=== PATIENT | male | born 1975 | race Caucasian/White ===

== ENCOUNTER → 2017-10-09 06:52 | Outpatient (CLI) | payer OTHER, SELFPAY ==
[2017-10-09 09:19] LABS: Add Manual Diff / Slide Review NO; Basophils Percent Auto 0.9 % (0-2); Eosinophils Percent Auto 11.2 % (2-4); Hematocrit 42.2 % (41-53); Hemoglobin 14.6 g/dL (13.5-17.5); Lymphocytes Percent Auto 32.7 % (25-40); Mean Corpuscular HGB Conc 34.6 % (30-36); Mean Corpuscular Hemoglobin 30.3 PG (26-34); Mean Corpuscular Volume 87.7 fL (80-100); Monocytes Percent Auto 9.7 % (3-14); Neutrophils Absolute Auto 2600 /uL (3000-5900); Neutrophils Percent Auto 45.5 % (50-75); Platelet Count 277 X10^3/uL (150-400); Red Blood Cell Count 4.81 X10^6/uL (4.5-5.9); Red Cell Distribution Width 13.1 % (11.6-14.8); White Blood Cell Count 5.7 X10^3/uL (4.5-11.0)
[2017-10-09 09:58] LABS: Alanine Aminotransferase 38 IU/L (21-72); Albumin 3.9 g/dL (3.5-5.0); Albumin Globulin Ratio 1.4 (1.0-2.8); Alkaline Phosphatase 64 U/L (38-126); Aspartate Aminotransferase 21 IU/L (17-59); BUN Creatinine Ratio 21.1 (6-22); Bilirubin Total 0.6 mg/dL (0.2-1.3); Blood Urea Nitrogen 19 mg/dL (9-20); Calcium 9.5 mg/dL (8.4-10.2); Carbon Dioxide 29 mmol/L (22-32); Chloride 106 mmol/L (98-107); Cholesterol 172 mg/dL (140-199); Estimated Glomerular Filt Rate > 60.0 mL/min (>60); Globulin 2.8 g/dL (1.7-4.1); Glucose 82 mg/dL (70-100); HDL Cholesterol 52 mg/dL (40-60); HEMOLYSIS < 15 (0-50); LDL Cholesterol Calculated 108 mg/dL (<100); Potassium 4.4 mmol/L (3.4-5.1); Sodium 144 mmol/L (137-145); Total Protein 6.7 g/dL (6.3-8.2); Triglycerides 59 mg/dL (35-150)
== END ==
PROVIDERS: PCP Family Medicine; Visit Provider Family Medicine
DX: E78.00 Pure hypercholesterolemia, unspecified (principal)
CPT/HCPCS: 36415; 80053; 80061; 85025

== ENCOUNTER → 2019-02-21 06:40 | Outpatient (CLI) | payer OTHER, SELFPAY ==
[2019-02-21 08:12] LABS: Alanine Aminotransferase 40 IU/L (<50); Albumin 4.2 g/dL (3.5-5.0); Albumin Globulin Ratio 1.4 (1.0-2.8); Alkaline Phosphatase 65 U/L (38-126); Aspartate Aminotransferase 28 IU/L (17-59); BUN Creatinine Ratio 16.3 (6-22); Bilirubin Total 0.6 mg/dL (0.2-1.3); Blood Urea Nitrogen 13 mg/dL (9-20); Calcium 9.7 mg/dL (8.4-10.2); Carbon Dioxide 30 mmol/L (22-32); Chloride 107 mmol/L (98-107); Cholesterol 161 mg/dL (140-199); Estimated Glomerular Filt Rate > 60.0 mL/min (>60); Glucose 97 mg/dL (70-100); HDL Cholesterol 51 mg/dL (40-60); HEMOLYSIS < 15 (0-50); LDL Cholesterol Calculated 99 mg/dL (<100); Potassium 4.1 mmol/L (3.4-5.1); Sodium 143 mmol/L (137-145); Total Protein 7.2 g/dL (6.3-8.2); Triglycerides 55 mg/dL (35-150)
[2019-02-21 08:41] LABS: Thyroid Stimulating Hormone 2.12 uIU/mL (0.47-4.68)
== END ==
PROVIDERS: PCP Hospitalist; Visit Provider Hospitalist
DX: E78.5 Hyperlipidemia, unspecified (principal)
CPT/HCPCS: 36415; 80053; 80061; 84443

== ENCOUNTER → 2020-06-23 09:39 | Outpatient (CLI) | payer MEDICARE, MEDICAID, SELFPAY ==
[2020-06-23] MEDS: COVID-19 VACC #1, MRNA(MOD) 100 MCG/0.5 ML VIAL IM (09:49)
== END ==
PROVIDERS: PCP Family Medicine; Visit Provider Internal Medicine
DX: Z23 Encounter for immunization (principal)
CPT/HCPCS: 0011A; 91301

== ENCOUNTER → 2020-07-22 09:05 | Outpatient (CLI) | payer MEDICARE, MEDICAID, SELFPAY ==
[2020-07-22] MEDS: COVID-19 VACC #2, MRNA(MOD) 100 MCG/0.5 ML VIAL IM (09:17)
== END ==
PROVIDERS: PCP Family Medicine; Visit Provider Internal Medicine
DX: Z23 Encounter for immunization (principal)
CPT/HCPCS: 0012A; 91301

== ENCOUNTER 2021-10-24 18:17 | Emergency (ER) | payer OTHER, SELFPAY ==
[2021-10-24 18:25] VITALS: BP 171/97; PULSE 68; RESP 22; TEMP 37.2; O2SAT 97
--- NOTE | 2021-10-24 18:59 | ED.WOUNDLAC ---
HPI - Wound/Laceration General Chief Complaint: Wound/Laceration Stated Complaint: Head injury Time Seen by Provider: 10/24/21 18:42 Source: patient Mode of arrival: Ambulatory History of Present Illness HPI narrative: 45-year-old male nonsmoker with history of hyperlipidemia presents with family in the chief complaint of an accidental injury to his upper eyelid. He was working and dropped a plastic box from overhead which hit him in the side of his face. He denies any loss of consciousness, nausea or vomiting. He denies any blurred vision or difficulty with vision, he has a laceration over his eyelid that was bleeding initially and no longer is. He is otherwise well and free of complaint. Related Data Previous Rx's Medication Instructions Recorded simvastatin 10 mg tablet 10 mg PO HS #90 tabs 01/24/19 Allergies Allergy/AdvReac Type Severity Reaction Status Date / Time No Known Drug Allergies Allergy Verified 03/20/19 10:42 Review of Systems Review of Systems Narrative: GENERAL: Denies chills, fatigue, malaise, fever, sweats. HEENT: Denies sinus pain, ear pain, sore throat, difficulty swallowing, dizziness. RESPIRATORY: Denies dyspnea, cough, wheezing, hemoptysis, sputum. CARDIOVASCULAR: Denies chest pain, palpitations, orthopnea, edema, GASTROINTESTINAL: Denies nausea, vomiting, abdominal pain, diarrhea, constipation, melena. : Denies dysuria, frequency, incontinence, hematuria, urinary retention. MUSCULOSKELETAL: denies weakness, joint pain, or bony pain SKIN: See HPI NEUROLOGIC: Denies weakness, headache, numbness, change in speech, confusion, seizures, incoordination. PSYCHIATRIC: No concerning psychosocial issues. 12 point review of systems is negative except for those stated above Patient History Medical History Cognitive developmental delay (Unknown) Hx of basal cell carcinoma Hyperlipemia (Unknown) Lipoma (~2011) Surgical History Hx of excision of mass (~2010) Status post biopsy Family History Father Hypercholesteremia Mother Diabetes mellitus Social History Smoking Status: Never smoker Smoking Status: Never smoker Exam Narrative Exam Narrative: GEN: AOx3 and in mild distress, GCS 15 HEAD: 1.0 cm laceration overlying the lateral aspect of his right upper lid, it does not cross the margin and is not through and through. EYES: Pupils are equal, round, and reactive to light and accommodation. Extraoccular muscles are intact bilaterally. There is no subconjunctival hemorrhage or exudate. CHEST: Lungs are clear to auscultation bilaterally and free of wheezes, rales, or rhonchi. Heart rate is regular rhythm, there are no murmurs, clicks, rubs, or gallops. There is no chest wall tenderness. ABD: Abdomen is soft and nontender. There is no guarding or rebound. Bowel sounds are normal in all 4 quadrants. There is no mass or organomegaly. EXT: Full painless ROM of all extremities with no loss of sensation or strength. SKIN: Warm, pink, and dry. No erythema or rash Initial Vital Signs Initial Vital Signs: Vital Signs Temperature 99.0 F 10/24/21 18:25 Pulse Rate 68 10/24/21 18:25 Respiratory Rate 22 10/24/21 18:25 Blood Pressure 171/97 H 10/24/21 18:25 Pulse Oximetry 97 10/24/21 18:25 Oxygen Delivery Method 10/24/21 18:25 Procedures Laceration Repair Laceration 1: Site: face Side (If applicable): right Size (cm): 1.0 Description: linear Depth: simple, single layer Local Anesthetic: lidocaine 1% Amount of anesthesia used (mL): 3 Pre-repair: wound explored and cleansed with chlorhexadine Skin layer closed with: nylon Skin layer suture size: 6-0 Number of sutures: 3 Technique: simple, interrupted Course Orders Ordered: Discontinued Medications Lidocaine HCl (Lidocaine 2% Inj Mdv) 1 ml SUBCUT NOW ONE Stop: 10/24/21 19:03 Last Admin: 10/24/21 19:06 Dose: 1 ml Documented By: HEATHER Vital Signs Vital signs: Vital Signs - 8 hr 10/24/21 18:25 Temperature 99.0 F Pulse Rate 68 Respiratory Rate 22 Blood Pressure 171/97 H Pulse Oximetry 97 Oxygen Delivery Method Room Air Discharge Plan Departure Patient Disposition: Home Clinical Impression: Eyelid laceration Qualifiers: Encounter type: initial encounter Laterality: right Qualified Code(s): S01.111A - Laceration without foreign body of right eyelid and periocular area, initial encounter Instructions: DI for Laceration Repair Activity Restrictions/Additional Instructions: *You have been diagnosed with [ Right eyelid laceration with suture repairs] *What to do: *Please continue to take your regular medications as directed. [ ] New medication prescriptions sent to your pharmacy: [ ] [ ] New medication written as a paper prescription [x ] No new medications given * Please keep the wound clean and dry to the best of your ability. Please monitor for signs of infection such as redness to the skin or increasing pain. Have the sutures/sarai removed by your doctor in about 7 days. If you are unable to get into your doctor, we would be happy to remove the sutures/sarai in that same timeframe. *If you do not have a primary care provider please contact the [facility] Resource line at [phone]. They will ask some questions about your medical history and help get you set up with a doctor in the community. *Return to Emergency Department if you should have any new, worsening or concerning symptoms Prescriptions: No Action simvastatin 10 mg tablet 10 mg PO HS Qty: 90 1RF Referrals: Raghav Marks DO [Primary Care Provider] - Visit Report Forms: Patient Portal/API
[2021-10-24] MEDS: LIDOCAINE 2% INJ MDV 1 ML SUBCUT (19:06)
== END 2021-10-24 19:37 | disposition home or self-care (01) ==
PROVIDERS: Emergency Provider Emergency Medicine; PCP Family Medicine
DX: S01.111A Laceration without foreign body of right eyelid and periocular area, initial encounter (principal); W22.8XXA Striking against or struck by other objects, initial encounter; Y99.0 Civilian activity done for income or pay
CPT/HCPCS: 12011; 99282; 99283

== ENCOUNTER 2021-12-05 14:31 | Emergency (ER) | payer OTHER, SELFPAY ==
[2021-12-05 14:45] VITALS: BP 143/86; PULSE 82; RESP 22; TEMP 36.7; O2SAT 97
[2021-12-05] MEDS: TET,DIPH,PERTUSS(ACELL),VAC/PF 0.5 ML SYRINGE IM (17:07)
--- NOTE | 2021-12-05 18:58 | ED_ITS ---
HPI - Wound/Laceration <Rudy Gooden PA-C - Last Filed: 12/05/21 19:27> General Chief Complaint: Wound/Laceration Stated Complaint: cut thumb on garbage can still bleeding Time Seen by Provider: 12/05/21 17:39 Source: patient Mode of arrival: Ambulatory History of Present Illness HPI narrative: Patient is a 45-year-old male who presents to the emergency room today with complaint of a laceration to his left thumb that he sustained earlier today around 11:00 a.m. while trying to lift a trash can. States the we will of the can and cut his thumb. Is okay to accept a tetanus vaccination here today. Related Data Previous Rx's Medication Instructions Recorded simvastatin 10 mg tablet 10 mg PO HS #90 tabs 01/24/19 Allergies Allergy/AdvReac Type Severity Reaction Status Date / Time No Known Drug Allergies Allergy Verified 03/20/19 10:42 Review of Systems <Rudy Gooden PA-C - Last Filed: 12/05/21 19:27> Review of Systems Narrative: R.O.S.: General: No fever, chills or fatigue. Cardiovascular: No chest pain or palpitations Respiratory: No S.O.B. HEENT: No congestion, ear pain, rhinorrhea, sore throat or tinnitus Gastrointestinal: No nausea or vomiting Skin: Laceration to left thumb Musculoskeletal: No pain in muscles or joints, no limitation of range of motion, no paresthesia or numbness. ?? Neurological: Awake, alert and in not apparent distress. No Headaches, changes i n vision or other related neurological concerns. Patient History <Rudy Gooden PA-C - Last Filed: 12/05/21 19:27> Medical History (Updated 12/05/21 @ 19:17 by Rudy Gooden PA-C) Cognitive developmental delay (Unknown) Hx of basal cell carcinoma Hyperlipemia (Unknown) Lipoma (~2011) Surgical History Hx of excision of mass (~2010) Status post biopsy Family History Father Hypercholesteremia Mother Diabetes mellitus Social History Smoking Status: Never smoker Smoking Status: Never smoker Exam <Rudy Gooden PA-C - Last Filed: 12/05/21 19:27> Narrative Exam Narrative: Physical Exam: ? General: normal appearance, well developed, well nourished, alert, and awake. Not in acute distress. ? Head: Normocephalic, no lesions. Chest: Lungs CTAB, no rales, rhonchi or wheezes. ?? Heart: RRR, no murmurs, rubs or gallops. Eyes: PERRLA, EOM's full, conjunctivae clear. ? Neuro: Physiological, no localizing findings, CN3-12 intact. ?? Extremities: Warm, well perfused, FROM, no deformities, no edema. ?? Skin: Patient has a 1 cm linear laceration to the volar surface of the left hand at the medial phalangeal bone of the thumb. The area has mild drainage with minimal erythema and no swelling. ? PSYCHIATRIC: The mood is good, no blunted affect. Speech is clear. Thought process is linear, thought content is appropriate. The voice is without significant inflection. Gastrointestinal: Soft; NT; ND; Pos BS with Neg. rebound tenderness. No scars or major deformities noted on Visual Inspection. Initial Vital Signs Initial Vital Signs: Vital Signs Temperature 98.1 F 12/05/21 14:45 Pulse Rate 82 12/05/21 14:45 Respiratory Rate 12/05/21 14:45 Blood Pressure 143/86 H 12/05/21 14:45 Pulse Oximetry 97 12/05/21 14:45 Oxygen Delivery Method 12/05/21 14:45 <Stefani Moreno DO - Last Filed: 12/05/21 19:48> Initial Vital Signs Initial Vital Signs: Vital Signs Temperature 98.1 F 12/05/21 14:45 Pulse Rate 82 12/05/21 14:45 Respiratory Rate 22 12/05/21 14:45 Blood Pressure 143/86 H 12/05/21 14:45 Pulse Oximetry 97 12/05/21 14:45 Oxygen Delivery Method 12/05/21 14:45 Procedures <ERIBERTO Del Valle Last Filed: 12/05/21 19:27> Laceration Repair Laceration 1: Site: hand Side (If applicable): left Size (cm): 1 Description: linear Depth: simple, single layer Local Anesthetic: lidocaine 2% Amount of anesthesia used (mL): 1 Pre-repair: wound explored and irrigated extensively Skin layer closed with: nylon Skin layer suture size: 6-0 Number of sutures: 4 Technique: simple, interrupted Course <Rudy Gooden PA-C - Last Filed: 12/05/21 19:27> Orders Ordered: Discontinued Medications Bacitracin (Bacitracin Oint 0.9 Gm Pckt) 2 applic TOP NOW ONE Stop: 12/05/21 18:58 Last Admin: 12/05/21 19:07 Dose: 2 applic Documented By: Diphtheria/Tetanus/Acell Pertussis (Tet,Diph,Pertuss(Acell),Vac/Pf 0.5 Ml Syringe) 0.5 ml IM .ONCE ONE Stop: 12/05/21 17:02 Last Admin: 12/05/21 17:07 Dose: 0.5 ml Documented By: Lidocaine HCl (Lidocaine 2% Inj Mdv 20ml) 5 ml SUBCUT NOW ONE Stop: 12/05/21 18:22 Last Admin: 12/05/21 19:07 Dose: Not Given Documented By: Vital Signs Vital signs: Vital Signs - 8 hr 12/05/21 14:45 Temperature 98.1 F Pulse Rate 82 Respiratory Rate 22 Blood Pressure 143/86 H Pulse Oximetry 97 Oxygen Delivery Method Room Air <Stefani Moreno DO - Last Filed: 12/05/21 19:48> Orders Ordered: Discontinued Medications Bacitracin (Bacitracin Oint 0.9 Gm Pckt) 2 applic TOP NOW ONE Stop: 12/05/21 18:58 Last Admin: 12/05/21 19:07 Dose: 2 applic Documented By: Diphtheria/Tetanus/Acell Pertussis (Tet,Diph,Pertuss(Acell),Vac/Pf 0.5 Ml Syringe) 0.5 ml IM .ONCE ONE Stop: 12/05/21 17:02 Last Admin: 12/05/21 17:07 Dose: 0.5 ml Documented By: Lidocaine HCl (Lidocaine 2% Inj Mdv 20ml) 5 ml SUBCUT NOW ONE Stop: 12/05/21 18:22 Last Admin: 12/05/21 19:07 Dose: Not Given Documented By: Vital Signs Vital signs: Vital Signs - 8 hr 12/05/21 14:45 Temperature 98.1 F Pulse Rate 82 Respiratory Rate 22 Blood Pressure 143/86 H Pulse Oximetry 97 Oxygen Delivery Method Room Air MDM - Wound/Laceration <Rudy Gooden PA-C - Last Filed: 12/05/21 19:27> [facility] Narrative Medical decision making narrative: Patient is a 45-year-old male presents to the emergency room with complaint of a laceration to his left thumb that occurred around 11:00 a.m. this morning while loading trash can. Tetanus prophylaxis was given in the ER today. Four interrupted sutures were used to close the 1 cm laceration without complications. Dressing was applied patient was advised to return in 7 days for stitches. Patient was also given instructions for care of the close the laceration. Patient agrees with plan Discharge Plan Departure Patient Disposition: Home Clinical Impression: Laceration Instructions: DI for Laceration Repair Activity Restrictions/Additional Instructions: *You have been diagnosed with laceration to left thumb. Four sutures were used to close the laceration to left thumb. A dressing was applied by the nurse with care instructions. I recommend you follow-up the emergency room or walk-in clinic for suture removal in 7 days. Please return to the emergency room for any emergent concerns arise. *What to do: *Please continue to take your regular medications as directed. [ ] New medication prescriptions sent to your pharmacy: [ ] [x] New medication written as a paper prescription [ ] No new medications given *Please follow up with your primary care provider in 2-3 days, call for an appointment. Let them know you were seen in the Emergency Department and that we ask that you be seen in follow up. We will electronically transmit a record of today's note if your PCP is in our system *If you do not have a primary care provider please contact the [facility] Resource line at [phone]. They will ask some questions about your medical history and help get you set up with a doctor in the community. *Return to Emergency Department if you should have any new, worsening or conc erning symptoms, such as [fever greater than 101 F, shaking chills, worsening pain, persistent vomiting or other bothersome symptoms] Prescriptions: No Action simvastatin 10 mg tablet 10 mg PO HS Qty: 90 1RF Referrals: Abdelrahman Marks DO [Primary Care Provider] - Visit Report Forms: Patient Portal/API <Stefani Moreno DO - Last Filed: 12/05/21 19:48> Cosign ED Attending Cosignature Attestation: I was immediately available in the department for consultation. Documentation has been reviewed.
[2021-12-05] MEDS: BACITRACIN OINT 0.9 GM PCKT 2 APPLIC TOP (19:07)
[2021-12-05] MEDS: LIDOCAINE 1% (PF) 2 ML (19:12)
== END 2021-12-05 19:25 | disposition home or self-care (01) ==
PROVIDERS: Emergency Provider Physician Assistant; PCP Family Medicine
DX: S61.012A Laceration without foreign body of left thumb without damage to nail, initial encounter (principal); W26.9XXA Contact with unspecified sharp object(s), initial encounter; Z23 Encounter for immunization; Y99.0 Civilian activity done for income or pay
CPT/HCPCS: 12001; 90471; 99283; 90715

== ENCOUNTER → 2025-02-11 06:46 | Outpatient (CLI) | payer OTHER, SELFPAY ==
[2025-02-11 08:03] LABS: Add Manual Diff / Slide Review NO; Hematocrit 43.2 % (41-53); Hemoglobin 14.7 g/dL (13.5-17.5); Lymphocytes Absolute Auto 1100 /uL (1100-4500); Mean Corpuscular HGB Conc 34.0 % (30-36); Mean Corpuscular Hemoglobin 30.4 PG (26-34); Mean Corpuscular Volume 89.3 fL (80-100); Platelet Count 242 X10^3/uL (150-400)
[2025-02-11 08:12] LABS: Hemoglobin A1C% w Est Avg Glu 5.5 % (4.0-6.0)
[2025-02-11 08:23] LABS: Alanine Aminotransferase 34 IU/L (<50); Albumin 4.1 g/dL (3.5-5.0); Albumin Globulin Ratio 1.5 (1.0-2.8); Alkaline Phosphatase 62 U/L (38-126); Blood Urea Nitrogen 16 mg/dL (9-20); Calcium 9.3 mg/dL (8.4-10.2); Carbon Dioxide 28 mmol/L (22-32); Chloride 107 mmol/L (98-107); Cholesterol 145 mg/dL (140-199); Estimated Glomerular Filt Rate > 60 mL/min (>60); Globulin 2.7 g/dL (1.7-4.1); Glucose 94 mg/dL (70-99); HDL Cholesterol 69 mg/dL (40-60); HEMOLYSIS < 15 (0-50); Potassium 4.4 mmol/L (3.4-5.1); Sodium 142 mmol/L (137-145); Total Protein 6.8 g/dL (6.3-8.2); Triglycerides 60 mg/dL (35-150)
== END ==
PROVIDERS: PCP Family Medicine; Referring Provider Family Medicine; Visit Provider Family Medicine
DX: E78.00 Pure hypercholesterolemia, unspecified (principal); F81.9 Developmental disorder of scholastic skills, unspecified; R73.03 Prediabetes; I10 Essential (primary) hypertension
CPT/HCPCS: 36415; 80053; 80061; 83036; 85025